=== PATIENT | female | born 1985 | race Hispanic/Latino ===

== ENCOUNTER 2018-04-10 14:05 | Emergency (ER) | payer OTHER ==
[2018-04-10] MEDS ORDERED: Albuterol-Ipratrop 3 mg / 0.5 (3 ml) UD IH STA (14:48)
[2018-04-10] MEDS ORDERED: Albuterol-Ipratrop 3 mg / 0.5 (3 ml) UD INH STA (14:48)
[2018-04-10] MEDS ORDERED: Sodium Chloride 0.9% 1,000 ML IV STA (14:50)
--- NOTE | 2018-04-10 14:50 | ED PDOC ---
HPI: Chest Pain Time Seen by Provider: 04/10/18 14:24 Chief Complaint (Nursing): Chest Pain Chief Complaint (Provider): Cough History Per: Patient History/Exam Limitations: no limitations Onset/Duration Of Symptoms: Days (1 week) Additional Complaint(s): Pt. with cough, dyspnea, bodyaches, chest buning/tightness. No numbness, tingles, nasal congestion. No weakness, abd pain. Ongoing for 1 week. During this time also traveled to [place] and came back. No calf pain. No fever. Hx of asthma. Started zpak yesterday. Past Medical History Reviewed: Nursing Documentation, Vital Signs Vital Signs: Last Vital Signs Temp 98.1 F 04/10/18 14:07 Pulse 98 H 04/10/18 14:07 Resp 20 04/10/18 14:07 BP 117/80 04/10/18 14:07 Pulse Ox 100 04/10/18 14:07 - Medical History PMH: Asthma - Surgical History Surgical History: Appendectomy, Tonsillectomy - Family History Family History: States: Unknown Family Hx - Living Arrangements Living Arrangements: With Family - Allergies Allergies/Adverse Reactions: Allergies Allergy/AdvReac Type Severity Reaction Status Date / Time No Known Allergies Allergy Verified 04/10/18 14:07 Review of Systems ROS Statement: Except As Marked, All Systems Reviewed And Found Negative Cardiovascular: Positive for: Chest Pain Respiratory: Positive for: Cough, Shortness of Breath Musculoskeletal: Positive for: Other (body aches) Physical Exam - Reviewed Nursing Documentation Reviewed: Yes Vital Signs Reviewed: Yes - Physical Exam Appears: Positive for: Non-toxic, No Acute Distress Head Exam: Positive for: ATRAUMATIC, NORMAL INSPECTION, NORMOCEPHALIC Skin: Positive for: Normal Color, Warm, DRY Eye Exam: Positive for: EOMI, Normal appearance, PERRL ENT: Positive for: Nasal Congestion Neck: Positive for: Normal, Painless ROM, Supple Cardiovascular/Chest: Positive for: Regular Rate, Rhythm, Chest Non Tender. Negative for: Edema Respiratory: Positive for: Decreased Breath Sounds, Wheezing (diffuse on expiration) Gastrointestinal/Abdominal: Positive for: Normal Exam, Soft. Negative for: Tenderness Back: Positive for: Normal Inspection. Negative for: L CVA Tenderness, R CVA Tenderness Extremity: Positive for: Normal ROM. Negative for: Tenderness, Pedal Edema, Calf Tenderness Neurologic/Psych: Positive for: Alert, Oriented - ECG ECG: Positive for: Interpreted By Me, Viewed By Me ECG Rhythm: Positive for: Normal QRS, Normal ST Segment, Sinus Rhythm O2 Sat by Pulse Oximetry: 100 Pulse Ox Interpretation: Normal - Progress ED Course And Treament: 1450: Dr. Garza to fu on labs and imaging. Disposition - Clinical Impression Clinical Impression: Asthma - Patient ED Disposition Is Patient to be Admitted: No - Disposition Disposition: Transfer of Care Disposition Time: 14:54 Condition: FAIR Patient Signed Over To: Gloria Garza
[2018-04-10] MEDS ORDERED: Albuterol-Ipratrop 3 mg / 0.5 (3 ml) UD ONE (14:57)
[2018-04-10 15:10] LABS: BASO # 0.1 K/uL (0.0-0.2); BASO % 1.2 % (0.0-2.0); EOS # 0.1 K/uL (0.0-0.7); EOS % 1.3 % (0.0-4.0); HEMOGLOBIN 10.8 g/dL (12.0-16.0); LYMPH # 2.2 K/uL (1.0-4.3); LYMPH % 26.1 % (20.0-40.0); MEAN CELL VOLUME 79.1 fl (81.0-99.0); MEAN CORPUSCULAR HEMOGLOBIN 25.8 pg (27.0-31.0); MEAN CORPUSCULAR HGB CONC 32.6 g/dL (33.0-37.0); MEAN PLATELET VOLUME 8.7 fl (7.2-11.7); MONO % 11.8 % (0.0-10.0); NEUT # 5.1 K/uL (1.8-7.0); NEUT % 59.6 % (50.0-75.0); NRBC % 0.1 % (0.0-0.0); RBC 4.21 Mil/uL (3.80-5.20); RED CELL DISTRIBUTION WIDTH 16.3 % (11.5-14.5); WHITE BLOOD COUNT 8.6 K/uL (4.8-10.8)
[2018-04-10 15:22] LABS: ALB/GLOB RATIO 1.3 (1.0-2.1); ALBUMIN 4.2 g/dL (3.5-5.0); ALT/SGPT 31 U/L (9-52); AST/SGOT 24 U/L (14-36); BLOOD UREA NITROGEN 11 mg/dl (7-17); CALCIUM 9.1 mg/dL (8.4-10.2); GFR NON-AFRICAN AMERICAN > 60
--- NOTE | 2018-04-10 15:55 | ED PDOC ---
- Laboratory Results Result Diagrams: 04/10/18 15:05 04/10/18 15:05 - ECG O2 Sat by Pulse Oximetry: 100 (RA) Pulse Ox Interpretation: Normal Medical Decision Making Medical Decision Making: Time: 1500 -- Patient endorsed to me by Dr. Anguiano, pending ER workup, reassessment and final ER disposition. 1550 Labs demonstrate mild anemia, otherwise no abnormalities. CXR no infiltrate or effusion DW pt findings. She reports h/o anemia and current level is "good" for her. Reports continued "burning" to her chest, especially with breathing. Reassurance given, advised will be given steroid and cough/pain medication which will improve symptoms. _ Scribe Attestation: Documented by Kinga Fabian acting as a scribe for Gloria Garza MD. Provider Scribe Attestation: All medical record entries made by the Scribe were at my direction and personally dictated by me. I have reviewed the chart and agree that the record accurately reflects my personal performance of the history, physical exam, medical decision making, and the department course for this patient. I have also personally directed, reviewed, and agree with the discharge instructions and disposition. Disposition Counseled Patient/Family Regarding: Studies Performed, Diagnosis, Need For Followup, Rx Given - Clinical Impression Clinical Impression: Bronchitis, Reactive airway disease - POA Present On Arrival: None - Disposition Referrals: [facility] [Outside] - 04/13/18 (FOLLOW UP WITH YOUR DOCTOR OR [facility] BY WEDNESDAY FOR REEVALUATION) Disposition: Routine/Home Disposition Time: 15:45 Condition: FAIR Additional Instructions: BronchospasmAdult Reactive Airway Disease, Reactive Airways Dysfunction Syndrome, Occupational Asthma Ree-Ac-Tiv Air-Way Disease by Paula Easton MA En Espaol (Albanian Version) Definition Bronchospasm is a reversible narrowing of the airways in response to a stimulus. Bronchospasm is not a diagnosis. Reactive airway disease is a term that may be used for a one-time event or until a more specific diagnosis can be made. If the condition lasts more than 6 months, it may be called asthma. Reactive airways dysfunction syndrome is used to define a chronic disease of bronchospasm after exposure to high levels of an irritating chemicals. Causes ^ Bronchospasm symptoms is caused by an increased sensitivity of the airways to certain triggers, such as allergens, cold air, or chemicals. These triggers cause tightening of the muscles around the airway. At the same time, the lining of the airways swell and produce excess mucus. All of these reactions narrow the airways and make it difficult to breathe. It is not clear what causes the tissue to overreact. It may be caused by a combination of factors including environment, genetics, and biology. Risk Factors ^ Factors that may increase your chance of bronchospasm include: * Family history of reactive airway disease or asthma * Smoking * Occupational exposure to chemicals, smoke, fumes or vapours. This may include : * Fire fighters, police, and other emergency services workers * Transfer Man * [place] * [place] Symptoms ^ Bronchospasm may result in: * Coughing * Tightness in the chest * Wheezing * Shortness of breath * Difficulty breathing Diagnosis ^ You will be asked about your symptoms and medical history. A physical exam will be done. Your doctor may ask about possible triggers that were around when you developed symptoms. Further testing may be done to look for the presence of allergies or other pulmonary issues. Tests may be done to look for pneumonia, viral infection, smoke inhalation, chemical exposure, or emphysema. Treatment ^ Treatment options include: Medications Medications may be used to prevent symptoms or treat a flare up. Options include : * Bronchodilators to open the airways * Corticosteroid medications to reduce inflammation * Mast cell stabilizers or leukotriene inhibitors that can prevent inflammation * Combination of these medications Some of these medications may be delivered with an inhaler or a machine that makes a medicated mist. Preventing Flare up Keep a journal of flare ups and what was happening when they occurred. This may help you discover your triggers. When you know your triggers, take steps to avoid them. Steps that may help you prevent future flare-ups include: * Take precautions by getting the seasonal flu and pneumonia vaccines. * Avoiding triggers: * If chemicals and strong scents are triggers: * Avoid breathing in chemicals or anything with a strong scent like perfumes, cigarette smoke, or scented candles. * Use an exhaust ventilation system or an approved respiratory protection device. * If the chemical is needed in your daily life or work, consider using substitute that is less irritating. * Be cautious around wood-burning stoves or fireplaces. These can be triggers for some. * If allergens are a trigger: * Keep windows closed when possible. This is especially important during high pollen seasons in late morning and afternoon. * Have someone else vacuum for you. If you must vacuum, wear a dust mask. Consider getting HEPA filters for your vacuum core cleaner. * Use dust cover on mattress or pillows. If you don't have a cover on your pillow, and your pillow is washable, wash it once per week in hot water. * Wash all towels and linens in hot water. * Avoid exposure to pets. Do not allow pets in the bedroom. Learn the early warning signs of a flare-up. This will allow you to treat the condition before it worsens. These signs may include wheezing, shortness of breath, and dry cough. Prevention ^ There is no known way to prevent bronchospasm. RESOURCES: [place] [employer] http://www.aaaai.org Family DoctorAmerican Academy of Family Physicians http://familydoctor.org [place] RESOURCES: The Asthma Society of [place] http://www.asthma.ca Health Acs http://www.hc-sc.gc.ca Prescriptions: Albuterol HFA [Ventolin HFA 90 mcg/actuation (8 g)] 2 puff IH Q4H PRN #1 inh PRN Reason: ASTHMA predniSONE [predniSONE Tab] 60 mg PO DAILY #15 tab Promethazine HCl/Codeine [Prometh-Codein 6.25-10 mg/5 ml] 10 ml PO Q6 PRN #120 ml PRN Reason: SEVERE COUGH ONLY Instructions: Acute Bronchitis, Adult (DC) Forms: [facility] ED School/Work Excuse, [facility] ([place])
[2018-04-10 16:44] VITALS: BP 114/62; PULSE 89; RESP 16; TEMP 98.4; O2SAT 99
--- NOTE | 2018-04-10 18:01 | RAD ---
Date of service: 04/10/2018 HISTORY: dyspnea COMPARISON: No prior. TECHNIQUE: Chest PA and lateral FINDINGS: LUNGS: No active pulmonary disease. PLEURA: No significant pleural effusion identified. No pneumothorax apparent. CARDIOVASCULAR: Normal. OSSEOUS STRUCTURES: No significant abnormalities. VISUALIZED UPPER ABDOMEN: Normal. OTHER FINDINGS: None. IMPRESSION: No active disease.
--- NOTE | 2018-04-11 09:29 | CARD ---
APPROVED REPORT Date of service: 04/10/2018 <Conclusion> Normal sinus rhythm Normal ECG
== END 2018-04-10 17:00 | disposition home or self-care (01) ==
LOC: H.ER 14:05
DX: J40 Bronchitis, not specified as acute or chronic (principal); J45.909 Unspecified asthma, uncomplicated
CPT/HCPCS: 71046; 80053; 81025; 84484; 85025; 87804; 93005; 94640; 96361; 96374; 96375; 99285; J1885; J2930; J7030